=== PATIENT | male | born 2000 | race Caucasian/White ===

== ENCOUNTER 2023-04-05 19:34 | Emergency (ER) | payer SELFPAY ==
[2023-04-05 19:45] VITALS: BP 105/64; PULSE 73; RESP 20; TEMP 36.8; O2SAT 99
--- NOTE | 2023-04-05 20:20 | W.ED.GENAD ---
Discharge Plan Disposition Patient Disposition: Home Condition: Stable Discharge Details Clinical Impression: Bitten by raccoon, initial encounter [facility]: Lisette May Discharge Instructions Instructions: Rabies Vaccine (By injection), Animal Bite (ED) Additional Instructions: Please return to the infusion clinic on the days specified in the form. You do need additional rabies vaccines on day 3 7 and 14. Keep bite area clean and dry. You may wash with soap and water daily. Watch for signs of infection including increased redness, swelling or red streaks. Please be seen again if you do have signs of infection. You were given a tetanus booster today. Follow up with primary care provider in 3-5 days. Return to ED sooner if any worsening or concerns. Increase oral fluids. Please take Tylenol or Ibuprofen with food every 4-6 hours as needed for pain and swelling. Discharge Data Discharge Date/Time-TO BE ENTERED AT DEPARTURE: 04/05/23 21:56 Medical Decision Making 22-year-old male presents to the ER after being bit in the right index finger by a raccoon while throwing out trash. He has 2 puncture wounds noted to the palmar aspect of his distal index finger. Bleeding is controlled. He is unsure of his last tetanus vaccination. No other associated symptoms or concerns. Discussed home care and strict return instructions and to return for signs of infection. Patient was given the rabies immunoglobulin and vaccine, paperwork filled out instructions for the additional vaccine doses. Patient was also given a Tdap booster. Patient was observed for at least 15 minutes after administration of the medication. No signs of adverse reactions. Patient discharged with home care and follow-up care he verbalized understanding. This text was generated using [employer] system, please disregard any oddities of phrase or misspellings. HPI General Mode of arrival: ambulatory. Date/Time Provider Initiated Documentation: 04/05/23 19:55. Limitations to Documentation: no limitations. Information obtained by: patient, RN notes reviewed and old records reviewed. HPI Narrative: 22-year-old male presents to the ER after being bit in the right index finger by a raccoon while throwing out trash. He has 2 puncture wounds noted to the palmar aspect of his distal index finger. Bleeding is controlled. He is unsure of his last tetanus vaccination. No other associated symptoms or concerns. General Stated Complaint: AnimalBite LINA: 4 Review of Systems All systems reviewed & are unremarkable except as noted in HPI and below Integumentary/Breasts Skin/Breast: Reports as per HPI and Reports wounds (Raccoon bite right index finger) PFSH All Active Problems (Updated 04/05/23 @ 21:04 by Lisette May NP) Bitten by raccoon, initial encounter (Acute) Social History Smoking/Tobacco Use Status: Never Smoking risk assessment performed?: Yes Alcohol Intake: never Substance use type: does not use Exam Resp Effort & Inspection: normal respiratory effort and able to speak in complete sentences Cardio Rate: regular rate Heart Sounds: S1 normal and S2 normal Extrem Right upper extremity: hand Details: normal to inspection, normal capillary refill, neuromotor exam normal and puncture wound (2 puncture wounds noted to the pad of the index finger) Hand/finger images: 1. Puncture wound bleeding controlled 2. Puncture wound bleeding controlled Course Vital Signs Vital signs: Vital Signs Temperature 36.8 C 04/05/23 19:45 Pulse 73 04/05/23 19:45 Respiratory Rate 20 04/05/23 19:45 Blood Pressure 105/64 04/05/23 19:45 Pulse Oximetry 99 04/05/23 19:45 Temperature 36.8 C 04/05/23 19:45 Temperature Source Temporal Artery Scan 04/05/23 19:45 Pulse 73 04/05/23 19:45 Respiratory Rate 20 04/05/23 19:45 Blood Pressure 105/64 04/05/23 19:45 Blood Pressure Position Sitting 04/05/23 19:45 Pulse Oximetry 99 04/05/23 19:45
--- NOTE | 2023-04-05 20:45 | NUR.NOTE ---
Nursing Note:FAXED TO [facility], REFERRAL FAXED TO [facility]
[2023-04-05] MEDS: Rabies Immune Globulin 300 UNIT/ML VIAL 1451.5 UNIT IM (20:51)
[2023-04-05 21:52] VITALS: BP 116/67; PULSE 68; RESP 16; TEMP 36.7; O2SAT 99
== END 2023-04-05 21:56 | disposition home or self-care (01) ==
PROVIDERS: Emergency Provider Registered Nurse Emergency
DX: S61.250A Open bite of right index finger without damage to nail, initial encounter (principal); W55.51XA Bitten by raccoon, initial encounter
CPT/HCPCS: 90471; 90472; 96372; 99284; 90675

== ENCOUNTER 2023-04-19 02:26 | Outpatient (RCR) | payer SELFPAY | END 2023-05-08 23:59 | disposition home or self-care (01) | LOC: INF 02:26 | PROVIDERS: Visit Provider Registered Nurse Emergency | DX: Z20.3 Contact with and (suspected) exposure to rabies (principal) | CPT/HCPCS: 96365; 96372; 90675 ==